=== PATIENT | male | born 1995 | race Caucasian/White ===

== ENCOUNTER 2020-01-05 00:47 | Emergency (ER) | payer SELFPAY ==
[~2020-01-05] VITALS: Ht 177.8 cm; Wt 75.0 kg
[2020-01-05 01:19] VITALS: Ht 177.8 cm; Wt 75.0 kg
[2020-01-05] MEDS ORDERED: AUGMENTIN 875-11 TAB PO (02:05)
[2020-01-05 02:47] VITALS: BP 117/67
== END 2020-01-05 02:48 | disposition home or self-care (01) ==
LOC: D.ER 00:47
DX: S91.351A Open bite, right foot, initial encounter (principal); S61.452A Open bite of left hand, initial encounter; W54.0XXA Bitten by dog, initial encounter; Y93.9 Activity, unspecified; Y92.9 Unspecified place or not applicable